=== PATIENT | male | born 1970 | race Caucasian/White ===

== ENCOUNTER → 2020-08-09 | Outpatient (CLI) | payer OTHER, BC ==
--- NOTE | 2020-08-09 15:48 | RAD ---
EXAM: 3 views both knees DATE: 08/09/2020 12:00 AM INDICATION: Reason: DEGENERATIVE JOINT DISEASE / Spl. Instructions: / History: COMPARISON: No Prior FINDINGS: Right knee: Recommend osteophytes are seen without medial lateral compartment joint space narrowing. Lucencies within the patella likely represent correlation patella. No acute fracture or dislocation. No knee joint effusion. Left knee: Trace knee joint space narrowing with tricompartmental osteophytes. No knee joint effusion. No acute fracture or dislocation. IMPRESSION: Bilateral knee joint osteoarthritis without evidence for acute fracture or dislocation. Electronically signed by: Jonathan Jose MD (08/09/2020 3:45 PM) [id number]
== END ==
LOC: RAD 12:11
PROVIDERS: ATTEND Physician Assistant Medical
DX: M17.0 Bilateral primary osteoarthritis of knee (principal)
CPT/HCPCS: 73562

== ENCOUNTER → 2021-05-18 | Outpatient (CLI) | payer BC ==
--- NOTE | 2021-05-18 15:19 | RAD ---
EXAM: Chest, 2 views. HISTORY: Hypertension. Preoperative evaluation. COMPARISON: None. FINDINGS: 2 views of the chest are obtained. There is no infiltrate, pleural effusion or pneumothorax . There is lingular and left lower lobe linear atelectasis or scarring. The heart is normal in size. IMPRESSION: No acute pulmonary finding. Electronically signed by: Monse Quiñones MD (05/18/2021 3:16 PM) [id number]
== END ==
LOC: RAD 15:02
PROVIDERS: ATTEND Physician Assistant Medical
DX: Z01.818 Encounter for other preprocedural examination (principal)
CPT/HCPCS: 71046